=== PATIENT | female | born 1980 | race Caucasian/White ===

== ENCOUNTER → 2017-02-20 | Outpatient (CLI) | payer OTHER ==
[~2017-02-20] MED LIST: PREN1CAP7 PO
== END ==
LOC: HPND 11:06
PROVIDERS: ATTEND Obstetrics & Gynecology
DX: O36.5930 Maternal care for other known or suspected poor fetal growth, third trimester, not applicable or unspecified (principal); O09.523 Supervision of elderly multigravida, third trimester; O09.33 Supervision of pregnancy with insufficient antenatal care, third trimester; O98.413 Viral hepatitis complicating pregnancy, third trimester; O99.213 Obesity complicating pregnancy, third trimester; E66.01 Morbid (severe) obesity due to excess calories; Z68.41 Body mass index [BMI] 40.0-44.9, adult
CPT/HCPCS: 76816; 76818; 76820; 76821

== ENCOUNTER 2017-03-25 16:28 | Inpatient (IN) | payer OTHER ==
[2017-03-25] VITALS (11 sets, daily range): BP systolic 112–132; BP diastolic 58–81; PULSE 77–86; RESP 16–18; TEMP 98.1–98.7
[2017-03-25] MEDS ORDERED: LACTATED RINGER'S 1000 ML INJ 1,000 ML IV PRN (18:28)
--- NOTE | 2017-03-25 18:28 | PD ---
HPI Chief Complaint Lower back pain, swelling of hands and feet Travel History International Travel<30 Days: No Contact w/Intl Traveler<30Days: No Known Affected Area: No History of Present Illness HPI 36-year-old 0-2, IUP at 41 weeks and 0 days care complicated by 1. Noncompliant, 2. Hepatitis C positive with high Biro load, 3. Reported history of hepatitis B positive, 4. Late care, 5. LGSIL Pap with HGSIL on colpo, 6. History of IV drug abuse, 7. History of polysubstance abuse with methamphetamines, cocaine, marijuana, 8. Advanced maternal age, 9. Maternal obesity with 60 pound weight gain during this , 10. IUGR, per records patient was to be induced at 38 weeks with by weekly testing in the interim however did not follow those instructions , 11. History of left knee reconstruction 2, 12. Left femur fracture with implanted joy, 13. Asthma, 14. Tobacco use The patient presents reporting she was scheduled to see be seen in the office at 3 PM. She reports she was late to that appointment so she came here instead. She reports complaining of hand swelling that is intermittent and been occurring over the past week and back pain that she feels only with making motions of sitting down or standing up that radiates to her neck and then the pain resolves. She denies any back pain at this time. She denies any regular contractions, leaking of fluid, or vaginal bleeding. She reports normal movement. She denies any headache, visual changes, right upper quadrant or epigastric pain. Weeks Gestation: 41 Para: 2 : 5 History Past Medical History Narrative Medical Hepatitis C positive with high viral load Reported history of hepatitis B positive LGSIL Pap with HGSIL on colpo History of IV drug abuse History of polysubstance abuse with methamphetamines, cocaine, marijuana Maternal obesity with 60 pound weight gain during this Asthma Obstetric History Obstetric History 0-22 SAB 2 Full-term 2 Past Surgical History Narrative Surgical History of left knee reconstruction 2, 12. Left femur fracture with implanted joy Family History Family History: Negative Social History Alcohol Use: No Tobacco Use: Yes Substance Abuse: Yes Allergies-Medications (Allergen,Severity, Reaction): Coded Allergies: No Known Allergies (Unverified , 02/18/17) Home Meds Active Scripts W/O Vit A W/ Fe Fumar (Citranatal [place]) 27-1-260 Mg Cap, 1 CAP PO DAILY for Nutritional Supplement, #30 CAP 11 Refills Prov:Glenis Frankel [place] 01/01/17 Review of Systems Except as stated in HPI: all other systems reviewed are Neg (except as noted in the history of present illness with positive back pain and hand swelling) Physical Exam Narrative GENERAL: Well-nourished, well-developed patient. SKIN: Warm and dry. HEAD: Normocephalic and atraumatic. EYES: No scleral icterus. No injection or drainage. ENT: No nasal drainage noted. Mucous membranes pink. Airway patent. NECK: Supple, trachea midline. No JVD. CARDIOVASCULAR: Regular rate and rhythm without murmurs, gallops, or rubs. RESPIRATORY: Breath sounds equal bilaterally. No accessory muscle use. BREASTS: Deferred ABDOMEN/GI: Abdomen soft, non-tender, bowel sounds present, no rebound, no guarding Gravid GENITOURINARY: External Genitalia: intact and normal in appearance. Normal BUS. No cervical or vaginal masses appreciated. Grossly normal rugae. Physiologic discharge noted. SVE 3/50/-2, cephalic, mid position, soft. FHT's: heart tones in the 120s with moderate long-term variability, good accelerations, no decelerations noted. heart tones are reassuring and appropriate for gestational age. EXTREMITIES: No cyanosis or edema. BACK: Nontender without obvious deformity. No CVA tenderness. NEUROLOGICAL: Awake and alert. Motor and sensory grossly within normal limits. Five out of 5 muscle strength in all muscle groups. Normal speech. Psychiatric: Grossly normal memory and affect Musculoskeletal: Grossly normal range of motion, gait, muscle strength Data Data Orders Orders Ob (2e) Additional Admit Info (03/25/17 18:06) MDM Plan 36-year-old 0-22 1. IUP at 41.0 2. Noncompliant, 3. Hepatitis C positive with high viral load, 4. Reported history of hepatitis B positive, 5. Late care, 6. LGSIL Pap with HGSIL on colpo, 7. History of IV drug abuse, will obtain urine drug screen 8. History of polysubstance abuse with methamphetamines, cocaine, marijuana, 9. Advanced maternal age, 10. Maternal obesity with 60 pound weight gain during this , 11. IUGR, per records patient was to be induced at 38 weeks with by weekly testing in the interim however did not follow those instructions, will admit and induce her labor at this time. Discussed risks of , risks and indications of delivery. Patient is in agreement with the plan. Solorzano score 7 so we'll start oxytocin. 12. History of left knee reconstruction 2, 13. Left femur fracture with implanted joy 14. testing: Reassuring testing with reactive NST and heart rate is reassuring and appropriate for gestational age. 15. GBS unknown: Will check rapid GBS test 16. Asthma 17. Tobacco use 18. Elevated blood pressures noted: No evidence of symptoms of preeclampsia, CBC/CMP/uric acid/UA sent for further evaluation Glenis Taylor MD Mar 25, 2017 18:28
[2017-03-25] MEDS ORDERED: OXYTOCIN 30 UNITS-500ML PREMIX 500 ML IV ONE (18:30)
[2017-03-25] MEDS ORDERED: LIDOCAINE HCL 1% 50 ML VIAL INFIL PRN (18:30)
[2017-03-25] MEDS ORDERED: MINERAL OIL 10 ML VIAL TOPICAL PRN (18:30)
[2017-03-25] MEDS ORDERED: SODIUM CHLORID 0.9% 500 ML INJ 500 ML IV PRN (18:30)
[2017-03-25] MEDS ORDERED: LIDOCAINE HCL 1% 50 ML VIAL I-DERMAL PRN (18:30)
[2017-03-25] MEDS ORDERED: ONDANSETRON HCL 4 MG/2 ML VIAL IV PUSH PRN (18:30)
[2017-03-25] MEDS ORDERED: OXYTOCIN 30 UNITS-500ML PREMIX 500 ML IV SCH (18:45)
[2017-03-25] MEDS ORDERED: SODIUM CHLOR 0.9% 1000 ML INJ 1,000 ML IV PRN (18:48)
--- NOTE | 2017-03-25 19:05 | HHI.HP ---
History & Physical H&P Patient Name: Jodie Lindsey Unit Number: [id number] Date of : 1980 Patient Status: Admitted Inpatient Attending Doctor: Glenis Taylor MD HPI HPI Chief Complaint Lower back pain, swelling of hands and feet Travel History International Travel<30 Days: No Contact w/Intl Traveler<30Days: No Known Affected Area: No History of Present Illness HPI 36-year-old 0-2, IUP at 41 weeks and 0 days care complicated by 1. Noncompliant, 2. Hepatitis C positive with high Biro load, 3. Reported history of hepatitis B positive, 4. Late care, 5. LGSIL Pap with HGSIL on colpo, 6. History of IV drug abuse, 7. History of polysubstance abuse with methamphetamines, cocaine, marijuana, 8. Advanced maternal age, 9. Maternal obesity with 60 pound weight gain during this , 10. IUGR, per records patient was to be induced at 38 weeks with by weekly testing in the interim however did not follow those instructions , 11. History of left knee reconstruction 2, 12. Left femur fracture with implanted joy, 13. Asthma, 14. Tobacco use The patient presents reporting she was scheduled to see be seen in the office at 3 PM. She reports she was late to that appointment so she came here instead. She reports complaining of hand swelling that is intermittent and been occurring over the past week and back pain that she feels only with making motions of sitting down or standing up that radiates to her neck and then the pain resolves. She denies any back pain at this time. She denies any regular contractions, leaking of fluid, or vaginal bleeding. She reports normal movement. She denies any headache, visual changes, right upper quadrant or epigastric pain. Weeks Gestation: 41 Para: 2 : 5 History (Limited) History Past Medical History Narrative Medical Hepatitis C positive with high viral load Reported history of hepatitis B positive LGSIL Pap with HGSIL on colpo History of IV drug abuse History of polysubstance abuse with methamphetamines, cocaine, marijuana Maternal obesity with 60 pound weight gain during this Asthma Obstetric History Obstetric History 0-22 SAB 2 Full-term 2 Past Surgical History Narrative Surgical History of left knee reconstruction 2, 12. Left femur fracture with implanted joy Family History Family History: Negative Social History Alcohol Use: No Tobacco Use: Yes Substance Abuse: Yes Allergies-Medications Allergies-Medications (Allergen,Severity, Reaction): Coded Allergies: No Known Allergies (Unverified , 02/18/17) Home Meds Active Scripts W/O Vit A W/ Fe Fumar (Citranatal [place]) 27-1-260 Mg Cap, 1 CAP PO DAILY for Nutritional Supplement, #30 CAP 11 Refills Prov:Glenis Frankel 01/01/17 ROS Review of Systems Except as stated in HPI: all other systems reviewed are Neg (except as noted in the history of present illness with positive back pain and hand swelling) Physical Exam Physical Exam Narrative GENERAL: Well-nourished, well-developed patient. SKIN: Warm and dry. HEAD: Normocephalic and atraumatic. EYES: No scleral icterus. No injection or drainage. ENT: No nasal drainage noted. Mucous membranes pink. Airway patent. NECK: Supple, trachea midline. No JVD. CARDIOVASCULAR: Regular rate and rhythm without murmurs, gallops, or rubs. RESPIRATORY: Breath sounds equal bilaterally. No accessory muscle use. BREASTS: Deferred ABDOMEN/GI: Abdomen soft, non-tender, bowel sounds present, no rebound, no guarding Gravid GENITOURINARY: External Genitalia: intact and normal in appearance. Normal BUS. No cervical or vaginal masses appreciated. Grossly normal rugae. Physiologic discharge noted. SVE 3/50/-2, cephalic, mid position, soft. FHT's: heart tones in the 120s with moderate long-term variability, good accelerations, no decelerations noted. heart tones are reassuring and appropriate for gestational age. EXTREMITIES: No cyanosis or edema. BACK: Nontender without obvious deformity. No CVA tenderness. NEUROLOGICAL: Awake and alert. Motor and sensory grossly within normal limits. Five out of 5 muscle strength in all muscle groups. Normal speech. Psychiatric: Grossly normal memory and affect Musculoskeletal: Grossly normal range of motion, gait, muscle strength Data Data Data Orders Orders Ob (2e) Additional Admit Info (03/25/17 18:06) MDM MDM Plan 36-year-old 0-22 1. IUP at 41.0 2. Noncompliant, 3. Hepatitis C positive with high viral load, 4. Reported history of hepatitis B positive, 5. Late care, 6. LGSIL Pap with HGSIL on colpo, 7. History of IV drug abuse, will obtain urine drug screen 8. History of polysubstance abuse with methamphetamines, cocaine, marijuana, 9. Advanced maternal age, 10. Maternal obesity with 60 pound weight gain during this , 11. IUGR, per records patient was to be induced at 38 weeks with by weekly testing in the interim however did not follow those instructions, will admit and induce her labor at this time. Discussed risks of , risks and indications of delivery. Patient is in agreement with the plan. Solorzano score 7 so we'll start oxytocin. 12. History of left knee reconstruction 2, 13. Left femur fracture with implanted joy 14. testing: Reassuring testing with reactive NST and heart rate is reassuring and appropriate for gestational age. 15. GBS unknown: Will check rapid GBS test 16. Asthma 17. Tobacco use 18. Elevated blood pressures noted: No evidence of symptoms of preeclampsia, CBC/CMP/uric acid/UA sent for further evaluation Glenis Taylor MD Mar 25, 2017 18:28 Glenis Taylor MD Mar 25, 2017 19:05
[2017-03-25] MEDS: CITRIC ACID-SODIUM CITRATE LIQ 30 ML UDC PO SCH (19:19)
[2017-03-25] MEDS: LACTATED RINGER'S 1000 ML INJ 1,000 ML IV SCH (19:20)
[2017-03-25 20:01] LABS: BASOPHIL # 0.1 TH/MM3 (0-0.2); BASOPHIL % 0.3 % (0.0-2.0); EOSINOPHIL # 0.4 TH/MM3 (0-0.4); HEMATOCRIT 36.8 % (35.0-46.0); HEMO FLAGS DIFF FINAL; LYMPH % 15.6 % (9.0-44.0); LYMPHOCYTE # 2.9 TH/MM3 (1.0-4.8); MEAN CELL VOLUME 88.1 FL (80.0-100.0); MEAN CORPUSCULAR HEMOGLOBIN 30.2 PG (27.0-34.0); MEAN CORPUSCULAR HGB CONC 34.3 % (32.0-36.0); NEUT % 76.1 % (16.0-70.0); PLATELET COUNT 261 TH/MM3 (150-450); RED BLOOD COUNT 4.18 MIL/MM3 (4.00-5.30); RED CELL DISTRIBUTION WIDTH 12.5 % (11.6-17.2); WHITE BLOOD COUNT 18.5 TH/MM3 (4.0-11.0)
[2017-03-25 20:29] LABS: BLOOD, URINE NEG (NEG); COMMENT (UR) CULT NOT INDICATED; CULTURE IF INDICATED CULT NOT INDICATED; GLUCOSE,URINE NEG (NEG); KETONE, URINE NEG (NEG); NITRITE,URINE NEG (NEG); SQUAMOUS EPITHELIAL CELL URINE <1 /hpf (0-5); URINE COLOR YELLOW (YELLW/STRAW)
[2017-03-25 20:31] LABS: ALT (GPT) 45 U/L (10-53)
[2017-03-25 20:34] LABS: ALKALINE PHOSPHATASE 156 U/L (45-117); TOTAL BILIRUBIN ADULT 0.2 MG/DL (0.2-1.0)
[2017-03-25 20:44] LABS: ANION GAP 10 MEQ/L (5-15); AST (GOT) 36 U/L (15-37); BICARBONATE 21.4 MEQ/L (21.0-32.0); BLOOD UREA NITROGEN 17 MG/DL (7-18); CHLORIDE 106 MEQ/L (98-107); GLOMERULAR FILTRATION RATE 136 ML/MIN (>89); POTASSIUM 3.8 MEQ/L (3.5-5.1); SODIUM (NA) 137 MEQ/L (136-145); URIC ACID 4.2 MG/DL (2.6-6.0)
[2017-03-26] VITALS (49 sets, daily range): BP systolic 96–143; BP diastolic 39–97; PULSE 64–186; RESP 16–22; TEMP 97.5–98.7
[2017-03-26] MEDS: LACTATED RINGER'S 1000 ML INJ 1,000 ML IV SCH (01:33)
[2017-03-26] MEDS: CITRIC ACID-SODIUM CITRATE LIQ 30 ML UDC PO SCH ×2 (01:33→07:30)
--- NOTE | 2017-03-26 06:59 | HHI.PR ---
Subjective Remarks OB Hg Subjective: Patient resting comfortably until after ROM Objective: VSS, AF FHT: heart tones in the 120s with moderate long-term variability, good accelerations, no decelerations noted [place]: Contractions every 3 minutes approximately SVE: 4/60/-1, SROM of clear fluid during examination Assessment/plan: 1. IUP at 41.1 2. IUGR: Induction of labor with oxytocin, SROM during exam with now painful contractions, we'll get epidural, expectant management 3. GBS negative 4. well-being: Reassuring testing with category 1 heart rate tracing Objective Vital Signs Date Time Temp Pulse Resp B/P (MAP) Pulse Ox O2 Delivery O2 Flow Rate FiO2 03/26/17 05:00 20 03/26/17 04:15 98.7 20 03/26/17 03:45 18 03/26/17 02:15 18 03/26/17 01:45 20 03/26/17 01:04 69 16 124/75 (91) 03/26/17 00:43 16 03/25/17 23:52 80 116/70 (85) 03/25/17 23:52 16 03/25/17 23:24 98.7 03/25/17 22:45 18 03/25/17 22:44 86 128/81 (97) 03/25/17 21:45 18 03/25/17 21:15 18 03/25/17 20:42 78 112/58 (76) 03/25/17 20:09 98.4 18 03/25/17 20:07 77 132/67 (88) 03/25/17 18:35 18 03/25/17 18:33 98.1 Result Diagram: 03/25/17183903/25/171839 Glenis Taylor MD Mar 26, 2017 06:59
[2017-03-26] MEDS ORDERED: ePHEDrine/NS 25 MG/5 ML SYR ONE (07:18)
[2017-03-26] MEDS ORDERED: fentaNYL 2MCG-BUPIV 0.125% INJ 100 ML ONE (07:18)
[2017-03-26] MEDS ORDERED: DO NOT ADMINISTER ANTICOAGULANTS PRN (09:15)
[2017-03-26] MEDS ORDERED: fentaNYL 2MCG-BUPIV 0.125% 100 ML EPIDURAL SCH (09:15)
[2017-03-26] MEDS ORDERED: NO SYSTEM NARCOTICS PRN (09:15)
[2017-03-26] MEDS ORDERED: ePHEDrine/NS 25 MG/5 ML SYR IV PUSH PRN (09:15)
--- NOTE | 2017-03-26 09:50 | PD.OB.DELI ---
Weeks gestation: 41 Gest age assessed date: Mar 26, 2017 Gest age assessed time: 09:30 Pt started active labor?: Yes Medical induction of labor?: Yes Medical induction start date: Mar 25, 2017 Medical induction start time: 20:09 Artificial rupture of membrane: No Anesthesia: Epidural Episiotomy: None Vaginal Delivery: Normal Presentation: Occiput anterior Nuchal Cord: x1 Delayed cord clamping (45 sec): No : Male Delivery date: Mar 26, 2017 Delivery time: 09:37 One Minute : 7 Five Minute : 8 Weight: 2915 g Laceration: No lacerations Estimated blood loss: 250 mL Additional Information Head delivered by maternal effort. Nuchal cord 1 that was tight and unable to be reduced so clamped and cut prior to delivery of anterior shoulder. Otherwise uneventful delivery. No lacerations appreciated. Christian Mix MD R1 Mar 26, 2017 09:50
[2017-03-26] MEDS ORDERED: ACETAMINOPHEN 325 MG TAB PO PRN (10:00)
[2017-03-26] MEDS ORDERED: oxyCODONE/ACETAMINOPHEN 5 MG/325 MG TAB PO PRN (10:00)
[2017-03-26] MEDS ORDERED: BENZOCAINE 20% TOPICAL SPRAY 60 ML CAN TOPICAL PRN (10:00)
[2017-03-26] MEDS ORDERED: ONDANSETRON ODT 4 MG TAB PO PRN (10:00)
[2017-03-26] MEDS ORDERED: WITCH HAZEL 50%/GLYCERIN 12.5% 40 PAD JAR TOPICAL PRN (10:00)
[2017-03-26] MEDS ORDERED: DOCUSATE SODIUM 50 MG/SENNA 8.6 MG TAB PO PRN (10:00)
[2017-03-26] MEDS ORDERED: OXYTOCIN 30 UNITS-500ML PREMIX 500 ML IV SCH (10:00)
[2017-03-26] MEDS ORDERED: SODIUM CHLORIDE 0.9% FLUSH 10 ML FLUSH IV FLUSH PRN (10:00)
[2017-03-26] MEDS ORDERED: ZOLPIDEM TARTRATE 5 MG TAB PO PRN (10:00)
[2017-03-26] MEDS ORDERED: diphenhydrAMINE HCL 50 MG CAP PO PRN (11:30)
[2017-03-26] MEDS ORDERED: diphenhydrAMINE HCL 50 MG CAP PO ONE (11:30)
[2017-03-26] MEDS ORDERED: MEASLES, MUMPS, RUBELLA VACCINE 0.5 ML VIAL SQ ONE (16:00)
[2017-03-26] MEDS ORDERED: DIPHTH/TETANUS/ACEL PERTUSSIS (BOOSTER) 0.5 ML VIAL/PFS IM ONE (16:00)
[2017-03-26] MEDS: IBUPROFEN 600 MG TAB PO PRN (16:47)
[2017-03-26] MEDS: oxyCODONE/ACETAMINOPHEN 5 MG/325 MG TAB PO PRN ×2 (17:58→23:46)
[2017-03-26] MEDS: SODIUM CHLORIDE 0.9% FLUSH 10 ML FLUSH IV FLUSH SCH (21:00)
[2017-03-26] MEDS: ALUMINUM/MAGNESIUM/SIMETH 30 ML CUP PO PRN (23:46)
[2017-03-27] MEDS: ALUMINUM/MAGNESIUM/SIMETH 30 ML CUP PO PRN ×2 (05:55→14:10)
[2017-03-27] MEDS: IBUPROFEN 600 MG TAB PO PRN ×3 (05:55→20:31)
[2017-03-27] MEDS: oxyCODONE/ACETAMINOPHEN 5 MG/325 MG TAB PO PRN ×3 (05:55→20:31)
[2017-03-27] MEDS: SODIUM CHLORIDE 0.9% FLUSH 10 ML FLUSH IV FLUSH SCH (08:30)
[2017-03-27 09:00] VITALS: BP 104/63; PULSE 68; RESP 16; TEMP 97.5; O2SAT 99
--- NOTE | 2017-03-27 09:57 | HHI.OB ---
Subjective Remarks Patient is a 36-year-old delivered at 41 weeks and 1 days. Patient is day 1 after NVD. Patient's pain is well-controlled. Patient reports eating and drinking without any nausea or vomiting. Patient reports minimal bleeding. Patient has passed gas but no bowel movements. Patient is walking without lower extremity pain or shortness of breath. Patient reports desire for contraception with Deposhot and plans to feed with both formula and breast- feeding. Objective Vitals/I&O Vital Signs Date Time Temp Pulse Resp B/P (MAP) Pulse Ox O2 Delivery O2 Flow Rate FiO2 03/26/17 20:00 98.1 80 18 131/74 (93) 03/26/17 14:45 98/64 (75) 03/26/17 12:45 97/42 (60) 03/26/17 12:45 98.0 72 18 03/26/17 12:03 83 129/97 (108) 03/26/17 11:59 85 130/39 (69) 03/26/17 11:59 18 03/26/17 10:45 18 03/26/17 10:33 66 116/65 (82) 03/26/17 10:30 97.8 03/26/17 10:28 18 03/26/17 10:19 64 96/61 (73) 03/26/17 10:16 64 98/47 (64) 03/26/17 10:06 18 03/26/17 10:01 186 113/84 (94) Objective Remarks GENERAL: Well-nourished, well-developed patient. CARDIOVASCULAR: Regular rate and rhythm without murmurs, gallops, or rubs. RESPIRATORY: Breath sounds equal bilaterally. No accessory muscle use. ABDOMEN/GI: Abdomen soft, non-tender. Fundus: Firm, non-tender at umbilicus. GENITOURINARY: Light to moderate bleeding. EXTREMITIES: No cyanosis or edema, non-tender, without signs of DVT. Medications and IVs Current Medications Medications (Trade) Dose Ordered Sig/Uche Route Start Time Stop Time Status Last Admin Fentanyl/ Bupivacaine HCl 100 ml @ 0 mls/hr TITRATE EPIDURAL 03/26/17 09:15 (NS Flush) 2 ml BID IV FLUSH 03/26/17 21:00 03/27/17 08:30 (NS Flush) 2 ml UNSCH PRN IV FLUSH 03/26/17 10:00 (Tylenol) 650 mg Q4H PRN PO 03/26/17 10:00 (Motrin) 600 mg Q6H PRN PO 03/26/17 10:00 03/27/17 05:55 (Percocet 5-325 Mg) 1 tab Q4H PRN PO 03/26/17 10:00 (Percocet 5-325 Mg) 2 tab Q4H PRN PO 03/26/17 10:00 03/27/17 05:55 (Americaine 20% Top Spr) 1 spray Q4H PRN TOPICAL 03/26/17 10:00 (Tucks Pads) 1 applic QID PRN TOPICAL 03/26/17 10:00 (Angelica-Colace) 2 tab Q12H PRN PO 03/26/17 10:00 (Ambien) 5 mg HS PRN PO 03/26/17 10:00 (Mag-Al Plus Susp Liq) 15 ml Q8H PRN PO 03/26/17 10:00 03/27/17 05:55 (Zofran Odt) 4 mg Q6H PRN PO 03/26/17 10:00 (Benadryl) 50 mg Q6H PRN PO 03/26/17 11:30 Assessment/Plan Problem List: (1) (spontaneous vaginal delivery) ICD Codes: O80 - Encounter for full-term uncomplicated delivery Assessment and Plan Patient is a 36-year-old delivered at 41 weeks and 1 days. Patient is day 1 after NVD. Patient was counseled to do 6 weeks of pelvic rest. Patient was counseled to follow up in 6 weeks. Patient requested follow-up and contraception with Depo shot. --AF VSS --Continue routine care --Motrin and Percocet when necessary for pain --Encourage OOB --Pelvic rest for 6 weeks will need follow-up appointment at that time. --Contraception: Depo-Provera shot --Anticipate discharge tomorrow --Patient is hepatitis B and hepatitis C positive --Pediatric team consult in case management to assess for any family concerns regarding baby Discussed with Dr. Ye Discharge Planning Likely discharge tomorrow Christian Mix MD R1 Mar 27, 2017 09:57
[2017-03-27] MEDS ORDERED: medroxyPROGESTERone ACETATE SUSP 150 MG/ML SYRINGE IM ONE (11:00)
[2017-03-27] MEDS ORDERED: IBUP-232 PO (11:54)
--- NOTE | 2017-03-27 11:54 | HHI.DCPOC ---
Discharge Care Plan Report Symptoms to Your Doctor -Temperature above 100.5 degrees -Redness, of incision or excessive or foul smelling drainage -Unusual pain or calf pain -Increased vaginal bleeding -Painful or difficulty urinating -Feelings of extreme sadness or anxiety after 2 weeks Goals to Promote Your Health * To prevent worsening of your condition and complications * To maintain your health at the optimal level Directions to Meet Your Goals Take your medications as prescribed Follow your dietary instruction Follow activity as directed Ensure plenty of rest for recovery Drink fluids for hydration Keep your appointments as scheduled Take your immunizations and boosters as scheduled If your symptoms worsen call your PCP, if no PCP go to Urgent Care Center or Emergency Room Smoking is Dangerous to Your Health. Avoid second hand smoke Call the 24-hour crisis hotline for domestic abuse at Christian Mix MD R1 Mar 27, 2017 11:54
[2017-03-27] MEDS ORDERED: INFLUENZA VIRUS VACCINE (QUADRIVALENT) 0.5 ML SYR IM ONE (12:22)
[2017-03-27 20:30] VITALS: BP 120/76; PULSE 82; RESP 18; TEMP 98.2
[2017-03-28 08:00] VITALS: BP 116/59; PULSE 83; RESP 16; TEMP 97.4; O2SAT 99
--- NOTE | 2017-03-28 08:18 | HHI.OB ---
Subjective Remarks Patient is a 36-year-old delivered at 41 weeks and 1 days. Patient is day 2 after . Patient's pain is well-controlled. Patient reports eating and drinking without any nausea or vomiting. Patient reports minimal bleeding. Patient has passed gas but no bowel movements. Patient is walking without lower extremity pain or shortness of breath. Patient received Depo shot yesterday and plans to both formula and breast feed. Objective Vitals/I&O Vital Signs Date Time Temp Pulse Resp B/P (MAP) Pulse Ox O2 Delivery O2 Flow Rate FiO2 03/27/17 20:30 98.2 82 18 120/76 (91) 03/27/17 09:00 97.5 68 16 104/63 (77) 99 Objective Remarks GENERAL: Well-nourished, well-developed patient. CARDIOVASCULAR: Regular rate and rhythm without murmurs, gallops, or rubs. RESPIRATORY: Breath sounds equal bilaterally. No accessory muscle use. ABDOMEN/GI: Abdomen soft, non-tender. Fundus: Firm, non-tender at umbilicus. GENITOURINARY: Light to moderate bleeding. EXTREMITIES: No cyanosis or edema, non-tender, without signs of DVT. Medications and IVs Current Medications Medications (Trade) Dose Ordered Sig/Uche Route Start Time Stop Time Status Last Admin Fentanyl/ Bupivacaine HCl 100 ml @ 0 mls/hr TITRATE EPIDURAL 03/26/17 09:15 (NS Flush) 2 ml BID IV FLUSH 03/26/17 21:00 03/27/17 08:30 (NS Flush) 2 ml UNSCH PRN IV FLUSH 03/26/17 10:00 (Tylenol) 650 mg Q4H PRN PO 03/26/17 10:00 (Motrin) 600 mg Q6H PRN PO 03/26/17 10:00 03/27/17 20:31 (Percocet 5-325 Mg) 1 tab Q4H PRN PO 03/26/17 10:00 (Percocet 5-325 Mg) 2 tab Q4H PRN PO 03/26/17 10:00 03/27/17 20:31 (Americaine 20% Top Spr) 1 spray Q4H PRN TOPICAL 03/26/17 10:00 (Tucks Pads) 1 applic QID PRN TOPICAL 03/26/17 10:00 (Angelica-Colace) 2 tab Q12H PRN PO 03/26/17 10:00 (Ambien) 5 mg HS PRN PO 03/26/17 10:00 (Mag-Al Plus Susp Liq) 15 ml Q8H PRN PO 03/26/17 10:00 03/27/17 14:10 (Zofran Odt) 4 mg Q6H PRN PO 03/26/17 10:00 (Benadryl) 50 mg Q6H PRN PO 03/26/17 11:30 Assessment/Plan Problem List: (1) (spontaneous vaginal delivery) ICD Codes: O80 - Encounter for full-term uncomplicated delivery Assessment and Plan Patient is a 36-year-old delivered at 41 weeks and 1 days. Patient is day 2 after NVD. Patient was counseled to do 6 weeks of pelvic rest. Patient was counseled to follow up in 6 weeks. Patient requested follow-up and contraception with Depo shot. --AF VSS --Continue routine care --Motrin and Percocet when necessary for pain --Encourage OOB --Pelvic rest for 6 weeks will need follow-up appointment at that time. --Contraception: Depo-Provera shot received --Anticipate discharge today Discussed with Dr. Taylor Discharge Planning Likely discharge today Christian Mix MD R1 Mar 28, 2017 08:18
[2017-03-28] MEDS: oxyCODONE/ACETAMINOPHEN 5 MG/325 MG TAB PO PRN (09:16)
[2017-03-28] MEDS: IBUPROFEN 600 MG TAB PO PRN (09:16)
== END 2017-03-28 11:47 | disposition home or self-care (01) | DRG 774 ==
LOC: HOBED 16:28 → H2EB 18:06 → H1EA 03-26 12:17
PROVIDERS: ADMIT Obstetrics & Gynecology; ATTEND Obstetrics & Gynecology
PROC: 10E0XZZ Delivery of Products of Conception, External Approach (ICD-10-PCS; principal; 2017-03-26)
PROC: 3E0P3VZ Introduction of Hormone into Female Reproductive, Percutaneous Approach (ICD-10-PCS; 2017-03-26)
PROC: 00HU33Z Insertion of Infusion Device into Spinal Canal, Percutaneous Approach (ICD-10-PCS; 2017-03-26)
PROC: 3E0R3BZ Introduction of Anesthetic Agent into Spinal Canal, Percutaneous Approach (ICD-10-PCS; 2017-03-26)
DX: O99.334 Smoking (tobacco) complicating childbirth (principal); O98.42 Viral hepatitis complicating childbirth; B19.10 Unspecified viral hepatitis B without hepatic coma; O99.214 Obesity complicating childbirth; Z37.0 Single live birth; B19.20 Unspecified viral hepatitis C without hepatic coma; E66.9 Obesity, unspecified; O99.52 Diseases of the respiratory system complicating childbirth; J45.909 Unspecified asthma, uncomplicated; F17.210 Nicotine dependence, cigarettes, uncomplicated; Z3A.41 41 weeks gestation of pregnancy; Z91.19 Patient's noncompliance with other medical treatment and regimen; O69.81X0 Labor and delivery complicated by cord around neck, without compression, not applicable or unspecified; O48.0 Post-term pregnancy; O36.5930 Maternal care for other known or suspected poor fetal growth, third trimester, not applicable or unspecified; R87.613 High grade squamous intraepithelial lesion on cytologic smear of cervix (HGSIL); Z23 Encounter for immunization
CPT/HCPCS: 59025; 80053; 80307; 81001; 84550; 85025; 86900; 86901; 90686; 90715; J1050; J2590; J7120; Q0163; Q2038